=== PATIENT | male | born 1990 | race American Indian/Alaskan Native ===

== ENCOUNTER 2019-10-27 13:13 | Emergency (ER) | payer OTHER ==
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
[2019-10-27 18:22] VITALS: BP 143/81
== END 2019-10-27 18:29 | disposition home or self-care (01) ==
LOC: ED 13:13
DX: M54.5 Low back pain (principal); M79.18 Myalgia, other site; R51 Headache; M25.562 Pain in left knee; I10 Essential (primary) hypertension
CPT/HCPCS: 70150; 70450; 72100; 72125; 99284